=== PATIENT | female | born 1955 | race Caucasian/White ===

== ENCOUNTER 2016-11-18 04:05 | Emergency (ER) | payer BC ==
[2016-11-18] MEDS ORDERED: METHYLPREDNISOLONE PF 125MG/VIAL IVP ONE (04:14)
[2016-11-18] MEDS ORDERED: IPRATROPIUM/ALBUTEROL (0.5MG/3MG) NEB INH ONE (04:14)
--- NOTE | 2016-11-18 04:19 | Emergency Department Record ---
History of Present Illness - General Chief Complaint: Shortness of breath Stated Complaint: CLARISSE Time Seen by Provider: 11/18/16 04:07 Source: Patient Mode of Arrival: Ambulatory Limitations: No limitations - History of Present Illness Initial Comments: 61 yo female presents to ED with a CC of worsening difficulty in breathing and cough symptoms for the past 2 days. Patient reports being treated for URI 9 days ago in [facility], has been taking amoxicillin for her symptoms. Patient denies previous heart or lung problems, denies history of DVT, denies leg swelling or calf pain symptoms. Patient denies fever symptoms. MD Complaint: Shortness of breath Onset/Timin -: Days(s) Severity: Moderate Consistency: Constant Context: Recent URI Associated Symptoms: Cough Treatments Prior to Arrival: None - Related Data Home Oxygen Therapy: No Previous Rx's Medication Instructions Recorded Albuterol Sulfate [Proair 90 mcg IH Q4HR PRN #1 [email or web address] 11/18/16 Respiclick] Prednisone [Prednisone 20Mg] 20 mg PO TID #12 tab 11/18/16 Allergies Allergy/AdvReac Type Severity Reaction Status Date / Time No Known Drug Allergies Allergy Verified 11/18/16 04:06 Review of Systems Constitutional: Denies: Chills, Fever, Malaise, Night sweats Eyes: Denies: Eye discharge, Eye pain ENT: Reports: Congestion. Denies: Ear pain, Epistaxis Respiratory: Reports: Cough, Dyspnea. Denies: Stridor, Wheezes Cardiovascular: Denies: Chest pain, Dyspnea on exertion Endocrine: Denies: Fatigue, Heat or cold intolerance Gastrointestinal: Denies: Abdominal pain, Nausea, Vomiting Genitourinary: Denies: Frequency, Hematuria, Incontinence, Retention Musculoskeletal: Denies: Arthralgia, Back pain, Gout, Joint swelling Skin: Denies: Bruising, Change in color Neurological: Denies: Abnormal gait, Confusion, Headache, Seizure Psychiatric: Denies: Anxiety Hematological/Lymphatic: Denies: Anemia, Blood Clots Physical Exam - General General Appearance: Alert, Oriented x3, Cooperative, Moderate distress Limitations: No limitations - Head Head exam: Atraumatic, Normocephalic, Normal inspection Head exam detail: negative: Abrasion, Contusion, Conrad's sign, General tenderness, Hematoma, Laceration - Eye Eye exam: Normal appearance. negative: Conjunctival injection, Periorbital swelling, Periorbital tenderness, Scleral icterus - ENT Ear exam: negative: Auricular hematoma, Auricular trauma Nasal Exam: negative: Active bleeding, Discharge, Dried blood, Foreign body Mouth exam: negative: Drooling, Laceration, Muffled voice, Tongue elevation - Neck Neck exam: Normal inspection. negative: Meningismus, Tenderness - Respiratory Respiratory exam: Decreased breath sounds. negative: Rhonchi, Stridor, Wheezes - Cardiovascular Cardiovascular Exam: Regular rate, Normal rhythm, Normal heart sounds - GI/Abdominal GI/Abdominal exam: Soft. negative: Rebound, Rigid, Tenderness - Rectal Rectal exam: Deferred - exam: Deferred - Extremities Extremities exam: Normal inspection. negative: Pedal edema, Tenderness - Back Back exam: Denies: CVA tenderness (R), CVA tenderness (L) - Neurological Neurological exam: Alert, Normal gait, Oriented X3 - Psychiatric Psychiatric exam: Normal affect, Normal mood - Skin Skin exam: Normal color. negative: Abrasion Type of lesion: negative: abrasion Course - Reevaluation(s) Reevaluation #1: 11/18/16 04:35 EKG: NSR 98 Normal axis Normal intervals No acute ST-T wave changes present. Reevaluation #2: 11/18/16 05:01 CXR: Findings c/w hyperinflation, no infiltrate present. Patient reassessed, reports that her breathing symptoms are improved following solumedrol and duoneb. Reevaluation #3: 11/18/16 05:35 Labs reviewed and are grossly unremarkable for an acute process. Patient reports she is breathing much better, and her symptoms appear consistent with Bronchospasm. Patient appears stable for discharge with instructions to finish her amoxicillin as directed, albuterol and prednisone as directed. Medical Decision Making - Lab Data Result diagrams: 11/18/16 04:15 11/18/16 04:15 Disposition Disposition: Discharge Clinical Impression: Acute bronchitis with bronchospasm Disposition: Home, Self-Care Condition: (2) Stable Instructions: Bronchospasm (ED) Additional Instructions: Return to ED if your symptoms worsen or if you have any concerns. Prednisone and albuterol as directed. Follow-up with Dr. Freire in 3-5 days as directed. Prescriptions: Albuterol Sulfate [Proair Respiclick] 90 mcg IH Q4HR PRN #1 [email or web address] PRN Reason: Difficulty In Breathing Prednisone [Prednisone 20Mg] 20 mg PO TID #12 tab Forms: Patient Portal Access Time of Disposition: 05:39
[2016-11-18 04:23] LABS: BASO % 0.7 % (0-6); EOS % 1.5 % (0-6); GRAN % 71.5 % (47-80); HEMATOCRIT 41.6 % (35.0-47.0); HEMOGLOBIN 13.3 gm/dl (11.6-16.0); LYMPH % 13.7 % (16-45); MEAN CELL VOLUME 88.1 fl (81-97); MEAN CORPUSCULAR HEMOGLOBIN 28.2 pg (27-33); MEAN PLATELET VOLUME 9.7 fl (7.4-10.4); MONO % 12.6 % (0-9); PLATELET COUNT 464 K/uL (130-400); RED BLOOD COUNT 4.72 M/uL (3.80-5.40); RED CELL DISTRIBUTION WIDTH 13.8 % (11.5-14.5); WHITE BLOOD COUNT W/O DIFF 8.1 K/uL (4.2-12.2)
[2016-11-18 04:34] LABS: ALB/GLOB RATIO 1.3 (1.1-1.8); ALBUMIN 4.4 gm/dL (3.5-5.0); ALKALINE PHOSPHATASE 102 U/L (38-126); ALT/SGPT 29 U/L (9-52); ANION GAP 10.4 (7-16); AST/SGOT 22 U/L (14-36); BILIRUBIN,TOTAL 0.27 mg/dL (0.2-1.3); BLOOD UREA NITROGEN 9 mg/dL (7-17); CARBON DIOXIDE 29.6 mmol/L (22-30); CREATININE 0.8 mg/dL (0.52-1.04); EST GLOMERULAR FILTRATION RATE > 60 ml/min; GLUCOSE,RANDOM 116 mg/dL (70-110); TOTAL PROTEIN 7.8 gm/dL (6.3-8.2)
[2016-11-18] MEDS ORDERED: ALBUTEROL HFA 8 GM INHALER INH ONE (05:55)
== END 2016-11-18 06:15 | disposition home or self-care (01) ==
LOC: ER 04:05
DX: J21.9 Acute bronchiolitis, unspecified (principal); Z87.891 Personal history of nicotine dependence
CPT/HCPCS: 71020; 80053; 83880; 85025; 85379; 93005; 93010; 96374; 99284; J2930